=== PATIENT | female | born 1980 | race Caucasian/White ===

== ENCOUNTER 2016-07-05 08:49 | Inpatient (IN) ==
--- NOTE | 2016-07-05 10:46 | Emergency Department Note ---
Arrival - Arrival Chief Complaint: Abdominal / Flank Pain Stated Complaint: hernia ED Nursing Triage Note: pt c/o pain to right groin. pt has inguinal hernia she sees Dr Prasad for. PT reports fever of 102 last night. Mode of Arrival: Ambulatory Limitations: No Limitations Source: Patient Time Seen by Provider: 07/05/16 10:29 - History of Present Illness HPI Narrative: This is a 28-year-old white female who is complaining of fever and right groin pain. She states that she has had the groin pain, and is seeing Dr. Brand about this, but the fever began last night. She states that Dr. Brand is talking to her about doing the surgery to correct her inguinal hernia on the right, but it will be after she sees a lung doctor on the of this month. She states that she had a fever of 102 last night and has been taking Motrin. At triage her temp is 98.3. She also states that she is mildly nauseated but has not vomited and has had no episodes of diarrhea. Onset (ago): day(s) (1) Severity: mild Date of Last Menstrual Period: hyst Allergies/Adverse Reactions: Allergies Allergy/AdvReac Type Severity Reaction Status Date / Time pseudoephedrine Allergy Mild Swelling Verified 07/05/16 09:13 [From Sudafed] of Lip/Tongue/Throat sulfamethoxazole Allergy RASH Verified 07/05/16 09:13 [From Bactrim] tramadol [From Ultram] Allergy ITCHING Verified 07/05/16 09:13 trimethoprim [From Bactrim] Allergy RASH Verified 07/05/16 09:13 methocarbamol [From Robaxin] AdvReac Diarrhea Verified 07/05/16 09:13 Home Medications: Home Medications Medication Instructions Recorded Confirmed Type Furosemide Tab [Lasix Tab] 20 mg PO DAILY 06/09/14 07/05/16 History FLUoxetine [PROzac] 40 mg PO DAILY 11/27/15 07/05/16 History clonazePAM TAB [KlonoPIN] 0.5 mg PO DAILY PRN 11/27/15 07/05/16 History Methadone [(None)] 10 mg PO BID 12/19/15 07/05/16 History Cyclobenzaprine [Flexeril] 10 mg PO DAILY 07/05/16 07/05/16 History Multivitamin [Multivitamins] 1 each PO DAILY 07/05/16 07/05/16 History Omeprazole [Prilosec] 20 mg PO DAILY 07/05/16 07/05/16 History Potassium 99 mg PO DAILY 07/05/16 07/05/16 History Topiramate [Topamax] 50 mg PO DAILY 07/05/16 07/05/16 History Review of System - Review of System 12 point system: reviewed and no additional remarkable complaints except as stated - Review of System Constitutional: Present: as per HPI, fever Gastrointestinal: Present: as per HPI, abdominal pain, nausea. Absent: vomiting , diarrhea, constipation Medical,Surgical,& Family Hx - Medical History Cardio: History of: Hypertension (TOOK OFF MEDS-DR) HEENT: History of: Eye Problem (GLASSES), Dental Problems (DENTIURES) Gastrointestinal: History of: GERD Musculoskeletal: History of: Back/Neck Problems, Herniated Disk, Musculoskeletal Problems Hematology: History of: Anemia - Surgical History Abdominal Surgeries: Surgical HX of: Hernia Repair Reproductive Surgeries: Surgical HX of;: Section, Dilation and Curettage, Hysterectomy (ROBOTIC POSSIBLE OPEN), Tubal Ligation - Family History Family History: Reports;: Family Heart Disease - Social History Smoking Status: Smoker, status unknown Frequency of Alcohol Use: None Type of Drug Use: None Exam Physical Examination: - General General appearance: [alert, in mild distress] - Head Head exam: [Present: atraumatic, normocephalic, normal inspection] - Eye Eye exam: [Present: normal appearance, PERRL, EOMI] - ENT ENT exam: [Present: normal exam, normal oropharynx, mucous membranes moist, TM' s normal bilaterally, normal external ear exam] - Neck Neck exam: [Present: normal inspection, full ROM, trachea midline] - Chest Chest inspection: [Present: normal inspection, symmetric chest wall rise] - Respiratory Respiratory exam: [Present: normal lung sounds bilaterally] - Cardiovascular Cardiovascular exam: [Present: regular rate, normal rhythm, normal heart sounds] - Abdominal Exam Abdominal exam: [Present: soft, normal bowel sounds. Exception: There is mild tenderness in the right lower quadrant on palpation.] - Extremities Exam Extremities exam: [Present: normal inspection, full ROM] - Back Exam Back exam: [Present: normal inspection, full ROM] - Neurological Exam Neurological exam: [Present: alert, oriented X3] - Psychiatric Psychiatric exam: [Present: normal affect, normal mood] - Skin Skin exam: [Present: warm, dry, intact, normal color] Vital Signs: Vital Signs Temperature 98.3 F 07/05/16 09:09 Pulse Rate 79 07/05/16 12:51 Respiratory Rate 20 07/05/16 12:51 Blood Pressure 131/69 07/05/16 12:51 O2 Sat by Pulse Oximetry 97 07/05/16 12:51 Course - Consultations Consultation #1: I spoke with Dr. Brand about the patient, and he wants the patient admitted. He is also seen her here in the emergency department Time: 13:35 Results - Labs CBC & BMP: 07/05/16 10:19 07/05/16 10:19 Lab Results: I have reviewed the patients labs Disposition Clinical Impression: Inguinal hernia Case discussed with: patient Disposition: Still a Patient Condition: Stable Time of Disposition: 13:58
[2016-07-05 10:53] LABS: Basophils % 0.5 % (0.0-0.8); Eosinophils # 0.1 10*3/uL (0.0-0.87); Eosinophils % 1.7 % (0.00-10.9); Hematocrit 45.9 VOL% (35.7-47.0); Hemoglobin 14.9 GM/DL (12.0-16.0); Immature Granulocytes % 0.3 %; Immature Granulocytes Absolute 0.02 #; Lymphocytes # 2.2 10*3/uL (1.4-4.0); Lymphocytes % 29.6 % (21.3-54.2); Mean Corpuscular HGB Conc 32.5 GM/DL (32-36); Mean Corpuscular Hemoglobin 29 PG (27-34); Mean Corpuscular Volume 87.9 FL (87-102); Mean Platelet Volume 10.8 FL (9.6-12.0); Monocytes # 0.5 10*3/uL (0.11-0.8); Monocytes % 7.1 % (1.7-12.7); Neutrophils # 4.6 10*3/uL (1.4-7.4); Neutrophils % 60.8 % (38.7-73.9); Platelet Count 165 T/CUMM (130-400); Red Blood Count 5.22 MC/CUMM (3.8-5.5); Red Cell Distribution Width 13.7 % (9.3-17.3); White Blood Count 7.6 T/CUMM (4-12)
[2016-07-05 11:33] LABS: Calcium 8.8 MG/DL (8.5-10.1); Osmolality,Calculated 283.1 MOS/KG (273-304); Potassium 4.3 MMOL/L (3.5-5.1)
--- NOTE | 2016-07-05 13:17 | CT Report ---
Referring physician: Brad Arredondo NP EXAM: CT abdomen and pelvis with contrast DATE: 07/05/2016 COMPARISON: 02/10/2014 REASON: Lower abdominal pain, fever TECHNIQUE: Axial images of the abdomen and pelvis were obtained after administration of 100 cc of Omnipaque 350 IV contrast. Coronal and sagittal reformatted images were also provided. Total DLP is 2713.50 mGy*cm. FINDINGS: Atelectasis at the visualized lung bases. Cardiac fat pads with fatty infiltration of the liver. No masses, dilated ducts, or calcified gallstones. The spleen is enlarged with a splenic index 1199. The pancreas and adrenal glands have an unremarkable appearance. 2.7 mm lower pole right and 1.7 and 3.2 mm mid pole left renal calculi. No definite obstructing urinary calculi identified. The aorta is normal in size with no adjacent adenopathy. Small hiatal hernia no significant dilatation of the small bowel. Tablet fragments in the bowel with fecal material throughout the colon. No evidence of diverticulitis, appendicitis, or free air. Interval hysterectomy. Prior pelvic hernia repair. There is a midline hernia inferiorly with fat density extending into the right pubic location. This finding extends over a 55 mm length and measures 33 mm in diameter. Minimal diffuse soft tissue stranding in the mesentery in the anterior pelvis. Degenerative changes. IMPRESSION: Atelectasis at the lung bases with fatty infiltration of the liver, minimal splenomegaly, nonobstructing bilateral renal calculi, small hiatal hernia, and increased fecal material in the colon. Interval hysterectomy with prior pelvic hernia repair. There is a midline hernia inferiorly which contains fat density with extension into the right pubic location. Associated soft tissue stranding in the mesentery including the mesentery in the anterior inferior pelvis location. This finding could be related to mesenteritis, mesenteric fat necrosis, etc. The CT exam was performed using one or more of the following dose reduction techniques: Automated exposure control and adjustment of the mA and/or kV according to patient size. PROCEDURE INTERPRETED AT [facility] DEPARTMENT OF RADIOLOGY Final Report Signed by: Dr. Sarah Lara
[2016-07-05] MEDS ORDERED: MORPHINE 2 MG/1 ML SYRINGE IV STA (14:53)
[2016-07-05] MEDS ORDERED: ACETAMINOPHEN 325 MG TABLET PO PRN (15:30)
--- NOTE | 2016-07-05 15:41 | General Surg History&Physical ---
Assessment and Plan (1) Recurrent hernia Status: Acute Assessment and plan: Patient is currently afebrile without leukocytosis. She does have symptomatic recurrent pelvic hernia. We will admit for pain management and Dr. Prasad will follow to assess for appropriateness of surgery and surgical options per Current Visit: Yes (2) COPD (chronic obstructive pulmonary disease) Status: Acute Assessment and plan: Patient is a lifetime smoker and continues to smoke. She apparently has a planned visit at [facility] for pulmonary changes found on previous CT. We will obtain chest x-ray and initiate incentive spirometry today. Monitor. Current Visit: Yes (3) GERD (gastroesophageal reflux disease) Status: Acute Assessment and plan: PPI daily Current Visit: Yes (4) Chronic back pain Status: Acute Assessment and plan: Resume home meds Current Visit: Yes (5) Anxiety Status: Acute Assessment and plan: Resume home meds Current Visit: Yes (6) Prophylactic measure Status: Acute Assessment and plan: DVT ppx: SCD. Lovenox ordered - should be held if surgical plans made. GI ppx: PPI daily . Current Visit: Yes History of Present Illness Chief complaint: Groin pain History of present illness: Ms. Simpson is a 36 year old female with past medical history of hypertension, GERD, anxiety, chronic back pain and possibly COPD with questionable lung changes which could be made neoplasm per patient report, and repair of inguinal hernia with mesh. Patient reports known failure of repair with intermittent pain, but yesterday she started to have severe inguinal pain and became febrile T-max 102. She was instructed to report to the emergency department this morning which she did. CT scan was performed revealing evidence to indicate possible Incarceration. Patient reports associated nausea and vomiting yesterday without diarrhea she denies chest pain, shortness of breath, or wheeze. She has chronic cough which is unchanged. She is reportedly planning to follow-up with [facility] regarding the possible neoplastic changes of her lungs. Home Medications Medication Instructions Recorded Confirmed Type Furosemide Tab [Lasix Tab] 20 mg PO DAILY 06/09/14 07/05/16 History FLUoxetine [PROzac] 40 mg PO QPM 11/27/15 07/05/16 History clonazePAM TAB [KlonoPIN] 0.5 mg PO DAILY PRN 11/27/15 07/05/16 History Methadone [(None)] 10 mg PO BID 12/19/15 07/05/16 History Cyclobenzaprine [Flexeril] 10 mg PO QPM PRN 07/05/16 07/05/16 History Multivitamin [Multivitamins] 1 each PO DAILY 07/05/16 07/05/16 History Omeprazole [Prilosec] 20 mg PO DAILY 07/05/16 07/05/16 History Potassium 99 mg PO DAILY 07/05/16 07/05/16 History Topiramate [Topamax] 50 mg PO QPM 07/05/16 07/05/16 History Allergies Allergy/AdvReac Type Severity Reaction Status Date / Time pseudoephedrine Allergy Mild Swelling Verified 07/05/16 09:13 [From Sudafed] of Lip/Tongue/Throat sulfamethoxazole Allergy RASH Verified 07/05/16 09:13 [From Bactrim] tramadol [From Ultram] Allergy ITCHING Verified 07/05/16 09:13 trimethoprim [From Bactrim] Allergy RASH Verified 07/05/16 09:13 methocarbamol [From Robaxin] AdvReac Diarrhea Verified 07/05/16 09:13 Medical,Surgical,& Family Hx - Medical History Cardio: History of: Hypertension (TOOK OFF MEDS-DR) Psychological: History of: Anxiety Disorders HEENT: History of: Eye Problem (GLASSES), Dental Problems (DENTIURES) Respiratory: History of: COPD Gastrointestinal: History of: GERD Musculoskeletal: History of: Back/Neck Problems, Herniated Disk, Musculoskeletal Problems (arthritis) Hematology: History of: Anemia Other: No history of: Malignant Hyperthermia - Surgical History Abdominal Surgeries: Surgical HX of: Hernia Repair Reproductive Surgeries: Surgical HX of;: Section, Dilation and Curettage, Hysterectomy (ROBOTIC POSSIBLE OPEN), Tubal Ligation - Family History Family History: Reports;: Family Cancer, Family Heart Disease, Family Hematology (mother with blood clots) - Social History Smoking Status: Current every day smoker Have you smoked in the last 12 months: Yes Frequency of Alcohol Use: None Type of Drug Use: None Functional capacity: independent ambulation (Employed fulltime) Exam - Constitutional General appearance: no acute distress, morbidly obese - Head Head exam: Present: normal inspection, normocephalic - Eye Eye exam: Absent: conjunctival injection, periorbital swelling - Neck Neck exam: Present: trachea midline - Respiratory Respiratory exam: Present: clear to auscultation bilaterally - Cardiovascular Cardiovascular exam: Present: RRR - GI/Abdominal GI/Abdominal exam: Present: hypoactive bowel sounds, tenderness (RLQ and Right groin/pelvic region about palpable hernia - pt guards against more thorough exam ), soft. Absent: distended - Extremities Exam Extremities exam: Absent: calf tenderness, edema - Neurological Exam Neurological exam: Present: alert Speech: Present: normal - Skin Skin exam: Present: normal color, warm - Constitutional Constitutional: Present: as per HPI. Absent: weight gain, weight loss - Cardiovascular Cardiovascular: Present: as per HPI - Respiratory Respiratory: Present: as per HPI - Gastrointestinal Gastrointestinal: Present: as per HPI. Absent: early satiety, hematemesis, hematochezia, melena - Genitourinary Genitourinary: Absent: dysuria, flank pain, hematuria - Musculoskeletal Musculoskeletal: Present: arthralgias (unchanged) Hematologic/Lymphatic: Absent: easy bleeding, easy bruising Results - Labs CBC & BMP: 07/05/16 10:19 07/05/16 10:19 Labs: UA pending CXR pending - Diagnostic Findings Procedure: CT Abdomen and Pelvis: image reviewed by me, report reviewed by me
[2016-07-05] MEDS ORDERED: clonazePAM 0.5 MG TABLET PO PRN (16:14)
[2016-07-05] MEDS ORDERED: CYCLOBENZAPRINE 10 MG TABLET PO PRN (16:14)
--- NOTE | 2016-07-05 17:01 | XRay Report ---
XR chest 2V Indication: Respiratory preoperative evaluation, nodules Comparison: 29 December 2015 Findings: The heart and mediastinum are normal in size and configuration. The pulmonary vascularity is normal in caliber. No lung infiltrates, effusions, pneumothorax or other abnormality is demonstrated. Impression: No cardiopulmonary disease is demonstrated. PROCEDURE INTERPRETED AT [facility] DEPARTMENT OF RADIOLOGY Final Report Signed by: Dr. Martin Morales
[2016-07-05] MEDS: METHADONE 10 MG TABLET PO SCH (20:59)
[2016-07-05] MEDS: TOPIRAMATE 25 MG TABLET PO SCH (20:59)
[2016-07-05] MEDS: FLUoxetine 20 MG CAPSULE PO SCH (20:59)
[2016-07-06] MEDS: MORPHINE 2 MG/1 ML SYRINGE IV PRN ×2 (03:23→10:26)
[2016-07-06] MEDS: ONDANSETRON 4 MG/2 ML VIAL IV PRN ×2 (06:26→21:21)
[2016-07-06] MEDS ORDERED: ENOXAPARIN 40 MG/0.4 ML SYRINGE ONE (07:52)
[2016-07-06] MEDS: METHADONE 10 MG TABLET PO SCH ×2 (08:18→21:20)
[2016-07-06] MEDS: FUROSEMIDE 20 MG TABLET PO SCH (08:18)
[2016-07-06] MEDS: PANTOPRAZOLE 40 MG TABLET PO SCH (08:18)
[2016-07-06] MEDS: ENOXAPARIN 40 MG/0.4 ML SYRINGE SUBCUT SCH (09:16)
--- NOTE | 2016-07-06 15:10 | General Surgery Progress Note ---
Assessment and Plan (1) Recurrent hernia Status: Acute Assessment and plan: Plan for operative repair Friday. Continue pain control. Continue with current diet and monitor. Current Visit: Yes Subjective Patient reports: Present: no new complaints Narrative: One episode of emesis. Currently no nausea or vomiting. She remains afebrile vital signs stable and while her pain is still present it is slightly improved. Exam - Constitutional Vitals: Period Temp Pulse Resp BP Sys/Villalba Pulse Ox Last 24 Hr 96.4 F-97.4 F 56-74 15-18 92-120/52-68 93-98 General appearance: no acute distress - Head Head exam: Present: normocephalic - ENT Mouth exam: Present: normal external inspection - Neck Neck exam: Present: normal inspection - Cardiovascular Cardiovascular exam: Present: RRR - GI/Abdominal GI/Abdominal exam: Present: soft (Nontender to palpation. Hernia involving the right labium is able to be reduced.) - Extremities Exam Extremities exam: Present: normal inspection - Back Exam Back exam: Present: normal inspection - Neurological Exam Neurological exam: Present: alert Speech: Present: normal - Skin Skin exam: Present: normal color Results - Labs CBC & BMP: 07/05/16 10:19 07/05/16 10:19
[2016-07-06] MEDS: FLUoxetine 20 MG CAPSULE PO SCH (18:02)
[2016-07-06] MEDS: TOPIRAMATE 25 MG TABLET PO SCH (18:02)
[2016-07-07] MEDS: MORPHINE 2 MG/1 ML SYRINGE IV PRN ×3 (01:59→23:04)
[2016-07-07] MEDS: ENOXAPARIN 40 MG/0.4 ML SYRINGE SUBCUT SCH (09:33)
[2016-07-07] MEDS: ONDANSETRON 4 MG/2 ML VIAL IV PRN ×2 (09:56→16:46)
[2016-07-07] MEDS: FUROSEMIDE 20 MG TABLET PO SCH (09:56)
[2016-07-07] MEDS: METHADONE 10 MG TABLET PO SCH ×2 (09:56→20:15)
[2016-07-07] MEDS: PANTOPRAZOLE 40 MG TABLET PO SCH (09:56)
[2016-07-07] MEDS ORDERED: LACTATED RINGERS 1,000 ML IV ONE (11:53)
--- NOTE | 2016-07-07 12:08 | General Surgery Progress Note ---
Assessment and Plan (1) Recurrent hernia Status: Acute Assessment and plan: Impression: Abdominal pain, nausea and vomiting Plan: We will recheck labs and plan for CT scan today to see if there have been any changes. We will make her n.p.o. I will give her a fluid bolus and start IV fluids. Current Visit: Yes Subjective Narrative: Patient says she is not feeling well today. She has had continued nausea and vomiting. She has pain in the lower abdomen and groin area. She has not had a bowel movement since Friday but on Friday it was a regular bowel movement. Exam - Constitutional Vitals: Period Temp Pulse Resp BP Sys/Villalba Pulse Ox Last 24 Hr 97.5 F-97.9 F 74-76 14-18 95-118/56-74 95-96 General appearance: no acute distress - Head Head exam: Present: normocephalic - ENT Mouth exam: Present: normal external inspection - Neck Neck exam: Present: normal inspection - Cardiovascular Cardiovascular exam: Present: RRR - GI/Abdominal GI/Abdominal exam: Present: soft (Mild tenderness in the right lateral abdomen and both upper and lower quadrants. Hernia is reducible. Mildly tender with reduction.) Results - Labs CBC & BMP: 07/05/16 10:19 07/05/16 10:19
[2016-07-07 12:13] LABS: Basophils % 0.6 % (0.0-0.8); Eosinophils # 0.1 10*3/uL (0.0-0.87); Eosinophils % 1.7 % (0.00-10.9); Hematocrit 43.9 VOL% (35.7-47.0); Hemoglobin 14.2 GM/DL (12.0-16.0); Immature Granulocytes % 0.2 %; Immature Granulocytes Absolute 0.01 #; Lymphocytes # 2.2 10*3/uL (1.4-4.0); Lymphocytes % 34.9 % (21.3-54.2); Mean Corpuscular HGB Conc 32.3 GM/DL (32-36); Mean Corpuscular Hemoglobin 29 PG (27-34); Mean Corpuscular Volume 88.7 FL (87-102); Mean Platelet Volume 10.6 FL (9.6-12.0); Monocytes # 0.4 10*3/uL (0.11-0.8); Monocytes % 6.3 % (1.7-12.7); Neutrophils # 3.6 10*3/uL (1.4-7.4); Neutrophils % 56.3 % (38.7-73.9); Platelet Count 145 T/CUMM (130-400); Red Blood Count 4.95 MC/CUMM (3.8-5.5); Red Cell Distribution Width 13.8 % (9.3-17.3); White Blood Count 6.3 T/CUMM (4-12)
[2016-07-07 12:45] LABS: Calcium 8.7 MG/DL (8.5-10.1); Osmolality,Calculated 282.1 MOS/KG (273-304); Potassium 4.3 MMOL/L (3.5-5.1)
[2016-07-07] MEDS: LACTATED RINGERS 1,000 ML IV SCH ×3 (13:58→21:38)
--- NOTE | 2016-07-07 18:33 | CT Report ---
CT abdomen pelvis Indication: Abdominal pain, hernia Comparison: 05 Jul 2016 Technique: Axial CT imaging of the abdomen and pelvis is performed with intravenous and oral contrast. Contrast dose is 100 cc of Omnipaque 350. Findings: Cardiac and lung bases are within normal limits. CT abdomen: The liver is diffusely decreased in density. Spleen pancreas and adrenal glands are normal in size and enhancement. No evidence of focal lesion is demonstrated in these solid organs. Kidneys are normal in size and enhancement. No evidence of hydronephrosis or nephrolithiasis is seen. The bowel caliber is normal and no wall thickening or adjacent inflammatory change is seen. No evidence of free fluid or free air is present. Appendix appears within limits. CT pelvis: Right inguinal hernia is present with fat only present within the hernia. The pelvic bowel appears within normal limits. Bladder shows no evidence of abnormality. The uterus and ovaries are not identified. Impression: Right inguinal hernia with fat only within the hernia at this time. No other acute findings. This CT exam was performed using one or more the following dose reduction techniques: Automated exposure control, adjustment of the MA and/or KV according to patient size, or use of iterative reconstruction technique. PROCEDURE INTERPRETED AT [facility] DEPARTMENT OF RADIOLOGY Final Report Signed by: Dr. Martin Morales
[2016-07-07] MEDS: FLUoxetine 20 MG CAPSULE PO SCH (20:15)
[2016-07-07] MEDS: TOPIRAMATE 25 MG TABLET PO SCH (20:15)
[2016-07-08] MEDS: LACTATED RINGERS 1,000 ML IV SCH ×4 (01:30→16:23)
[2016-07-08] MEDS: MORPHINE 2 MG/1 ML SYRINGE IV PRN ×4 (04:32→22:00)
[2016-07-08] MEDS: ONDANSETRON 4 MG/2 ML VIAL IV PRN (08:01)
--- NOTE | 2016-07-08 10:00 | General Surgery Progress Note ---
Assessment and Plan (1) Recurrent hernia Status: Acute Assessment and plan: Impression: Abdominal pain, nausea and vomiting Plan: CT scan reviewed. There is been no significant changes. There is no evidence of bowel in the hernia or any bowel obstruction. I discussed repair of the recurrent hernia with her. We discussed open versus laparoscopic repair and she would like to proceed with laparoscopic repair. The risks of the procedure including bleeding, infection, damage to surrounding structures, need for further surgery were all discussed in detail and she wants to proceed. She understands that her nausea and vomiting may be related to some other issue and if it persists postoperatively then will plan to work that up. It might be due to her pain giving her a visceral type reaction. Current Visit: Yes Subjective Patient reports: Present: no new complaints Exam - Constitutional Vitals: Period Temp Pulse Resp BP Sys/Villalba Pulse Ox Last 24 Hr 97.0 F-98.4 F 60-75 18-20 103-165/59-81 94-99 General appearance: no acute distress - Head Head exam: Present: normocephalic - Neck Neck exam: Present: normal inspection - Respiratory Respiratory exam: Present: clear to auscultation bilaterally - Cardiovascular Cardiovascular exam: Present: RRR - GI/Abdominal GI/Abdominal exam: Present: soft (Right groin pain with reducible hernia. Abdominal tenderness improved. No peritonitis.) - Extremities Exam Extremities exam: Present: normal inspection - Back Exam Back exam: Present: normal inspection - Neurological Exam Neurological exam: Present: alert, oriented X3 Speech: Present: normal - Skin Skin exam: Present: normal color Results - Labs CBC & BMP: 07/07/16 12:05 07/07/16 12:05 Lab Results: I have reviewed the past 24 hour labs
[2016-07-08] MEDS: PANTOPRAZOLE 40 MG TABLET PO SCH (10:55)
[2016-07-08] MEDS ORDERED: TISSUE ADHESIVE 1 EACH APPLICATOR TOP ONE (11:39)
[2016-07-08] MEDS ORDERED: BUPIVACAINE MPF 0.25% /EPI 30 ML VIAL ONE (11:39)
[2016-07-08] MEDS ORDERED: ONDANSETRON 4 MG/2 ML VIAL ONE ×2 (12:02→15:31)
[2016-07-08] MEDS ORDERED: PROPOFOL 200 MG/20 ML VIAL IV ONE (12:02)
[2016-07-08] MEDS ORDERED: PHENYLEPHRINE 1 MG/10 ML SYRINGE IV ONE (12:02)
[2016-07-08] MEDS ORDERED: SUCCINYLCHOLINE 200 MG/10 ML VIAL ONE (12:02)
[2016-07-08] MEDS ORDERED: LIDOCAINE 1% 5 ML VIAL ONE (12:02)
[2016-07-08] MEDS ORDERED: ACETAMINOPHEN 1,000 MG/100 ML VIAL IV ONE (15:01)
[2016-07-08] MEDS ORDERED: SEVOFLURANE 1 UNIT/15 MINUTE INH ONE (15:01)
[2016-07-08] MEDS ORDERED: LACTATED RINGERS 1,000 ML IV ONE (15:01)
[2016-07-08] MEDS ORDERED: MIDAZOLAM 2 MG/2 ML VIAL ONE (15:01)
[2016-07-08] MEDS ORDERED: ONDANSETRON 4 MG/2 ML VIAL IV PRN (15:33)
[2016-07-08] MEDS ORDERED: HYDROmorphone 2 MG/1 ML VIAL IV PRN (15:33)
--- NOTE | 2016-07-08 15:40 | Operative Note ---
Date of procedure: 07/08/16 Pre-op diagnosis: Recurrent right inguinal hernia Post-op diagnosis: other (Suprapubic incisional hernia with sac extending into the right labia) Procedure: Procedure performed: Robotically assisted laparoscopic incisional hernia repair Procedure in detail: After informed consent was obtained, patient was taken operating suite and laid supine on the operating table. After general anesthesia was induced the abdomen was prepped and draped in usual sterile fashion. After procedural pause local anesthetic infiltrated in the skin and subcutaneous tissue above the umbilicus. Incision was made and dissection carried down through skin and soft tissue. Fascia was grasped with Randolph's and elevated fascial incision was made. Abdominal cavity was entered bluntly. Finger sweep revealed no adhesions. Benedict trocar placed under direct visualization. Pneumoperitoneum achieved. Camera inserted bowel mesentery inspected and found to be free of any violation. Next patient was placed in Trendelenburg position. 8 mm trochars were placed in the right upper quadrant and left upper quadrant under visualization. The robotic arms were docked and not to control to consult. The pelvis was examined and there was no inguinal hernia present. In the midline there was a 3 cm incisional hernia from her prior . This was in the suprapubic position. The sac extended to the right toward the labia as seen on CT scan. The peritoneum was divided transversely as well as the transversalis fascia at approximately the level of the umbilicus. I then bluntly developed the plane between the posterior rectus muscle and the transversalis fascia bilaterally extending down to the level of the hernia. There was some bleeding near the left inferior epigastric artery which was controlled with clip application. I then dissected the hernia sac and reduced its contents which contained a lot of omentum back into the abdominal cavity. There was some sac divided and the left in the canal as I could not completely remove all the sac. I continued the dissection in the same plane down to the pubic tubercle. This plane was developed for laterally on each side to accommodate mesh placement. The defect was approximately 3 cm in diameter. A flat piece of pro-hi ranger operator mesh 15 x 20 cm was brought into the abdominal cavity and unrolled completely covering the defect well on all sides. I placed a suture to anchor it to the pubic tubercle using 2-0 Prolene suture. The mesh laid flat and there was no tenting with reapproximation of the peritoneum. There was excellent hemostasis. The transversalis fascia and peritoneum were reapproximated using2-o strata fix suture. The small rent in the hernia sac was closed with 3-0 running Vicryl. Intra-abdominal organs appeared normal including the gallbladder which only appeared distended but with no inflammation. Small bowel appeared normal. The robotic arms were undocked and the trochars were removed as the abdomen desufflated. Fascia at the Benedict trocar site was closed using 0 Vicryl [id number] interrupted sutures. Wounds were irrigated and suctioned skin closed with samantha. Sterile dressings applied. Patient was extubated and taken recovery room in stable condition. All lap and needle counts correct at the end of the case. Anesthesia: MARYA Surgeon / Physician: Alex Prasad Estimated blood loss: other (Less than 10 cc) Specimens: none sent Condition: stable Disposition: PACU Results - Labs CBC & BMP: 07/07/16 12:05 07/07/16 12:05 Discharge Plan - Discharge Medications No Action Furosemide Tab [Lasix Tab] 20 mg PO DAILY FLUoxetine [PROzac] 40 mg PO QPM clonazePAM TAB [KlonoPIN] 0.5 mg PO DAILY PRN PRN Reason: Anxiety Methadone [(None)] 10 mg PO BID Topiramate [Topamax] 50 mg PO QPM Potassium 99 mg PO DAILY Omeprazole [Prilosec] 20 mg PO DAILY Multivitamin [Multivitamins] 1 each PO DAILY Cyclobenzaprine [Flexeril] 10 mg PO QPM PRN PRN Reason: Muscle Spasm - Follow Up or Referral - Forms/Instructions
--- NOTE | 2016-07-08 18:05 | Event Note ---
I was asked to check on this patient by the nursing staff for decreased vision and pain in the right eye postoperatively. The patient underwent robotic assisted laparoscopic suprapubic hernia repair with mesh by Dr. Brand today. After she recovered from surgery she noted some pain and blurry vision in her right eye. She had no previous ophthalmologic history. She has on exam decreased vision in the right eye with blurred vision but she does still have light sensation. The sclera is inflamed but there are no obvious abrasions. Her pupils are reactive. I have discussed her case with Dr. Reynaga who agreed to see her tomorrow and recommended bacitracin ointment every 4 hours while awake tonight. This has been ordered.
[2016-07-08] MEDS: METHADONE 10 MG TABLET PO SCH ×2 (19:05→20:25)
[2016-07-08] MEDS: FUROSEMIDE 20 MG TABLET PO SCH (19:05)
[2016-07-08] MEDS: FLUoxetine 20 MG CAPSULE PO SCH (19:14)
[2016-07-08] MEDS: TOPIRAMATE 25 MG TABLET PO SCH (19:19)
[2016-07-08] MEDS: BACITRACIN OPH OINT 3.5 GM TUBE RIGHT EYE SCH (20:25)
[2016-07-09] MEDS: MORPHINE 2 MG/1 ML SYRINGE IV PRN ×2 (02:10→08:21)
[2016-07-09] MEDS: LACTATED RINGERS 1,000 ML IV SCH ×3 (02:17→15:46)
[2016-07-09] MEDS: BACITRACIN OPH OINT 3.5 GM TUBE RIGHT EYE SCH ×6 (02:18→21:28)
[2016-07-09] MEDS: METHADONE 10 MG TABLET PO SCH ×2 (10:15→21:27)
[2016-07-09] MEDS: FUROSEMIDE 20 MG TABLET PO SCH (10:15)
[2016-07-09] MEDS: PANTOPRAZOLE 40 MG TABLET PO SCH (10:23)
[2016-07-09] MEDS ORDERED: KETOROLAC 15 MG/1 ML VIAL IV ONE (10:49)
--- NOTE | 2016-07-09 10:54 | Event Note ---
POD # 1 s/p laparoscopic right inguinal hernia repair. Pt reports abdominal pain controlled. No change in right eye complaint from yesterday and now with associated right sided AVILES. No fever, chills, rigors, N/V/D, CP, SOB, wheeze or cough. Voiding without difficulty and passing flatus. VSS Head: atrauamatic, normocephalic. Right eye with mild injection; no discharge. Photophobic with unchanged blurred vision. No motor deficit appreciated. Lungs: CTAB Heart RRR Abdomen: dressings c/d/i. Abd soft and appropriately tender p/o. BS present. Ext: calves soft/NT. No pedal edema A/p Stable POD #1 s/p right inguinal hernia repair. Work on transitioning to oral pain medication. Pt to see sales professional bilingual this afternoon for right eye blurry vision. Diet as tolerated. SCD. PPI daily. Dispo: pending diet tolerance, pain control and ophth recs
--- NOTE | 2016-07-09 15:41 | Anesthesia Post-Op ---
Anesthesia Post OP - Post Ansesthetic Evaluation Patient seen in post op: Yes Resp: within normal limits CV: within normal limits Mental: within normal limits Temp: within normal limits [id number]: within normal limits Nausea and Vomiting: within normal limits Pain: within normal limits
[2016-07-09] MEDS: POLYVINYL ALCOHOL 1.4% OPH SOLN 15 ML BOTTLE RIGHT EYE SCH ×4 (16:59→21:28)
[2016-07-09] MEDS: TOPIRAMATE 25 MG TABLET PO SCH (19:43)
[2016-07-09] MEDS: FLUoxetine 20 MG CAPSULE PO SCH (19:43)
[2016-07-10] MEDS: POLYVINYL ALCOHOL 1.4% OPH SOLN 15 ML BOTTLE RIGHT EYE SCH ×7 (00:33→11:48)
[2016-07-10] MEDS: BACITRACIN OPH OINT 3.5 GM TUBE RIGHT EYE SCH ×3 (02:39→10:15)
[2016-07-10] MEDS: METHADONE 10 MG TABLET PO SCH (08:48)
[2016-07-10] MEDS: PANTOPRAZOLE 40 MG TABLET PO SCH (08:48)
[2016-07-10] MEDS: FUROSEMIDE 20 MG TABLET PO SCH (08:49)
--- NOTE | 2016-07-10 09:02 | Event Note ---
Went to evaluate pt for complaint of red and sore right eye from the day before. When entering room pt walking in room. She said it feels better than it did yesterday (07-09-16). She also says its less red than yesterday. I attempted to evaluate eye there was no obvious scratches or foreign body seen. No other complications related to anesthesia expressed.
[2016-07-10] MEDS ORDERED: ZINC OXIDE PASTE 113 GM TUBE TOP PRN (10:33)
[2016-07-10 10:41] LABS: Basophils % 0.2 % (0.0-0.8); Eosinophils # 0.3 10*3/uL (0.0-0.87); Eosinophils % 3.7 % (0.00-10.9); Hemoglobin 12.5 GM/DL (12.0-16.0); Immature Granulocytes % 0.4 %; Immature Granulocytes Absolute 0.03 #; Lymphocytes # 1.8 10*3/uL (1.4-4.0); Lymphocytes % 22.1 % (21.3-54.2); Mean Corpuscular HGB Conc 32.1 GM/DL (32-36); Mean Corpuscular Hemoglobin 29 PG (27-34); Mean Corpuscular Volume 89.9 FL (87-102); Mean Platelet Volume 10.9 FL (9.6-12.0); Monocytes # 0.6 10*3/uL (0.11-0.8); Monocytes % 7.6 % (1.7-12.7); Neutrophils # 5.4 10*3/uL (1.4-7.4); Platelet Count 115 T/CUMM (130-400); Red Blood Count 4.34 MC/CUMM (3.8-5.5); Red Cell Distribution Width 13.7 % (9.3-17.3); White Blood Count 8.2 T/CUMM (4-12)
--- NOTE | 2016-07-10 10:58 | Discharge Summary ---
Hospital Course - Hospital Course Hospital Course: Patient is a 36-year-old female who underwent robotic assisted laparoscopic incisional hernia repair of a suprapubic incisional hernia with sac extending into the right labia. Initially thought this was to be a recurrent right inguinal hernia that was previously repaired with mesh, but this was actually a separate hernia from a section scar. Postoperatively, the patient progressed well, tolerating diet with appropriate pain management. She was voiding and passing bowels without difficulty prior to discharge. In the immediate postop phase, the patient was noted to have blurred vision of the right eye with injection and ophthalmology was consulted. Patient was transported to the bricklayer apprentice office who examined the patient and sent back recommendations for frequent saline flushes with a dry cornea. No trauma was identified. The patient noted significant improvement with the saline washes with resolution of the visual disturbance. Patient was ultimately discharged home in good condition with appropriate analgesics and follow with Dr. Prasad. Diagnosis - Discharge Diagnosis (1) Incisional hernia Status: Acute (2) COPD (chronic obstructive pulmonary disease) Status: Acute (3) GERD (gastroesophageal reflux disease) Status: Acute (4) Chronic back pain Status: Acute (5) Anxiety Status: Acute Discharge Plan - Discharge Data Disposition: Disch To Home/Self Care Condition at Discharge: Stable Discharge Diet: advance to your usual diet Activity: no lifting (> 10 lb), other (Wear abdominal binder at all times. ) Hygiene: may shower (Do not soak or submerge wound. Pat dry. ) Driving: not until seen by doctor Contact your physician if you experience:: fever over 101, Difficulty voiding, Redness or swelling, Nausea/Vomiting, Shortness of breath, Bleeding, pain uncontrolled by pain medications Wound / Dressing Care Instructions: Keep incisions clean, dry and covered. - Discharge Medications New Bacitracin Oph Oint 1 applic RIGHT EYE TID #1 gm Polyvinyl Alcohol 1.4% Oph Nichole [Artificial Tears Oph Soln] 1 drop RIGHT EYE Q2H bottle Continue Furosemide Tab [Lasix Tab] 20 mg PO DAILY FLUoxetine [PROzac] 40 mg PO QPM clonazePAM TAB [KlonoPIN] 0.5 mg PO DAILY PRN PRN Reason: Anxiety Methadone 10 mg PO BID Topiramate [Topamax] 50 mg PO QPM Potassium 99 mg PO DAILY Omeprazole [Prilosec] 20 mg PO DAILY Multivitamin [Multivitamins] 1 each PO DAILY Cyclobenzaprine [Flexeril] 10 mg PO QPM PRN PRN Reason: Muscle Spasm - Follow Up or Referral Follow Up: Alex Prasad MD [Physician] - 2 Weeks - Forms/Instructions Instructions: Abdominal Binder (DC) Exam - Constitutional Vitals: Period Temp Pulse Resp BP Sys/Villalba Pulse Ox Last 24 Hr 98.0 F-99.1 F 73-86 12-20 91-118/46-66 90-97 General appearance: no acute distress - Head Head exam: Present: normal inspection, normocephalic - Eye Eye exam: Present: EOMI. Absent: conjunctival injection, nystagmus, scleral icterus, laceration to eyelids Pupils: Present: AGUSTIN - Respiratory Respiratory exam: Present: clear to auscultation bilaterally - Cardiovascular Cardiovascular exam: Present: regular rate and rhythm - GI/Abdominal GI/Abdominal exam: Present: normal bowel sounds - Extremities Exam Extremities exam: Absent: calf tenderness, edema - Neurological Exam Neurological exam: Present: alert, oriented X3 - Psychiatric Psychiatric exam: Present: normal affect, normal mood - Skin Skin exam: Present: normal color, warm Discharge Results Procedures and tests throughout hospitalization: 1. Robotically-assisted laparoscopic incisional hernia repair with 15 x 20 cm mesh Labs on day of discharge: Labs from last 24 hours 07/10/16 10:14 WBC 8.2 D RBC 4.34 Hgb 12.5 Hct 39.0 MCV 89.9 MCH 29 MCHC 32.1 RDW 13.7 Plt Count 115 L D MPV 10.9 Neut % (Auto) 66.0 Lymph % (Auto) 22.1 Stephenson % (Auto) 7.6 Eos % (Auto) 3.7 Baso % (Auto) 0.2 Neut # (Auto) 5.4 Lymph # (Auto) 1.8 Stephenson # (Auto) 0.6 Eos # (Auto) 0.3 Baso # (Auto) 0.0 Immature Gran % 0.4 Nucleated RBC % 0.0 Immature Gran # 0.03 Nucleated RBCs # 0.00 - Imaging and Cardiology Procedure: Chest x-ray: image reviewed by me, report reviewed by me, CT Abdomen and Pelvis: image reviewed by me, report reviewed by me DS: Provider Date of admission: 07/05/16 14:00 Primary care physician: . No PCP Attending physician on admission: Alex Prasad MD Consults: 07/08/16 18:03 Consult to Physician [CONS] Routine Comment: right eye irritation, decreased vision Consulting Provider: Sundar Reynaga Consulting Provider Notified: Yes When should Consulting Provider be notified: Now Person Notified: gretchen villalba Date Notified: 07/09/16 Time Notified: 08:28 Discharging clinician: Katya Duong PA-C
[2016-07-10 11:18] VITALS: BP 102/56
== END 2016-07-10 13:00 | disposition home or self-care (01) | DRG 355 ==
LOC: N.ED 08:49 → N.EDINP 14:00 → N.3E 14:51
PROVIDERS: ADMIT Surgery; ATTEND Surgery